=== PATIENT | male | born 1955 | race Caucasian/White ===

== ENCOUNTER 2016-12-09 16:41 | Emergency (ER) | payer OTHER ==
[2016-12-09 17:28] LABS: BASOPHIL 0.5 % (0-2); EOSINOPHIL 1.1 % (0-5); HCT 39.3 % (42.0-52.0); HGB 14.5 g/dl (13.2-18.0); LYMPHOCYTE 27.3 % (15-48); MCH 31.9 pg (25.0-31.0); MCHC 36.9 g/dL (32.0-36.0); MCV 86.6 fL (78.0-100.0); MONOCYTE 7.8 % (0-12); MPV 9.9 fL (6.0-9.5); NEUTROPHIL 63.3 % (41-80); PLT 334 K/uL (150-400); RBC 4.54 M/uL (4.70-6.00); RDW 12.8 % (11.5-14.0); WBC 6.2 K/uL (4.0-10.5)
[2016-12-09 17:32] LABS: INR 1.02 (0.9-1.2); PTT 28.2 SECONDS (23.2-31.4)
[2016-12-09 17:41] LABS: ALBUMIN 3.9 g/dL (3.4-4.8); BILIRUBIN - TOTAL 0.5 mg/dL (0.1-1.0); CREATININE 0.7 mg/dL (0.7-1.2); POTASSIUM 4.2 mmol/L (3.5-5.1); TOTAL PROTEIN 5.9 g/dL (6.4-8.3)
[2016-12-09 17:52] LABS: FT4 (FREE T4) 1.97 ng/dL (0.93-1.70); TSH (THYROID STIM HORMONE) 1.13 uIU/mL (0.270-4.200)
[2016-12-09 18:34] LABS: BILIRUBIN NEGATIVE (NEGATIVE); BLOOD NEGATIVE Ery/uL (NEGATIVE); CLARITY CLEAR (CLEAR); COLOR YELLOW (YELLOW); GLUCOSE (U) TRACE mg/dL (NORMAL); KETONE (U) NEGATIVE (NEGATIVE); LEUKOCYTES NEGATIVE Leu/uL (NEGATIVE); NITRITE NEGATIVE (NEGATIVE); PROTEIN NEGATIVE (NEGATIVE); SPECIFIC GRAVITY <=1.005 (1.001-1.030); UROBILINOGEN 0.2 mg/dL (0.2-1.0)
== END 2016-12-09 19:02 | disposition home or self-care (01) ==
LOC: FER 16:41
PROVIDERS: Emergency Medicine
DX: I95.1 Orthostatic hypotension (principal); F41.9 Anxiety disorder, unspecified; E11.43 Type 2 diabetes mellitus with diabetic autonomic (poly)neuropathy; K31.84 Gastroparesis; R63.4 Abnormal weight loss; Z79.84 Long term (current) use of oral hypoglycemic drugs; Z79.4 Long term (current) use of insulin; Z79.899 Other long term (current) drug therapy
CPT/HCPCS: 36415; 70450; 71010; 80053; 81003; 84439; 84443; 84484; 85025; 85610; 85730; 93005; J2405

== ENCOUNTER 2022-04-07 19:36 | Emergency (ER) | payer OTHER ==
[2022-04-07 19:58] LABS: BASOPHIL 0.9 % (0-2); EOSINOPHIL 2.2 % (0-7); HCT 43.5 % (42.0-52.0); HGB 14.8 g/dl (13.2-18.0); LYMPHOCYTE 25.8 % (15-48); MCH 30.3 pg (25.0-31.0); MCV 89.1 fL (78.0-100.0); MONOCYTE 7.4 % (0-12); MPV 10.5 fL (6.0-9.5); NEUTROPHIL 63.4 % (41-80); NRBC 0; PLT 259 K/uL (150-400); RBC 4.88 M/uL (4.70-6.00); RDW 12.5 % (11.5-14.0); WBC 7.9 K/uL (4.0-10.5)
[2022-04-07 20:25] LABS: BUN/CREAT RATIO (CALC) 22.1 RATIO; CREATININE 1.22 mg/dL (0.67-1.17); POTASSIUM 4.2 mmol/L (3.5-5.1)
[2022-04-07] MEDS ORDERED: EPIPEN 2-P0.3 MG/0.3 IM (22:10)
[2022-04-07] MEDS ORDERED: MEDROL 4MG DOSEP4 MG PO (22:10)
== END 2022-04-07 22:25 | disposition home or self-care (01) ==
LOC: FER 19:36
PROVIDERS: Emergency Medicine
DX: T78.40XA Allergy, unspecified, initial encounter (principal); I10 Essential (primary) hypertension; E11.9 Type 2 diabetes mellitus without complications; Z79.84 Long term (current) use of oral hypoglycemic drugs; Z79.899 Other long term (current) drug therapy
CPT/HCPCS: 36415; 71045; 80048; 84484; 85025; 93005; 96372; J0171; J1200; J2930